=== PATIENT | male | born 1945 | race Caucasian/White ===

== ENCOUNTER 2019-08-19 17:02 | Inpatient (IN) | payer MEDICARE ==
[~2019-08-19] VITALS: Ht 180.3 cm; Wt 105.1 kg
--- NOTE | 2019-08-19 17:49 | RAD ---
EXAM: AP View of the chest DATE: 08/19/2019 5:22 PM INDICATION: Shortness of breath COMPARISON: No Prior FINDINGS: The heart is not enlarged. Mediastinal and hilar contours are normal. No focal parenchymal airspace opacity. No pleural effusion or pneumothorax. IMPRESSION: 1. No radiographic evidence for acute cardiopulmonary process. Electronically signed by: Donavon Teixeira MD (08/19/2019 5:46 PM) KIERRA
[2019-08-19 18:00] LABS: BASO % 0 % (0-3); EOS % 0 % (0-3); HEMATOCRIT 42.5 % (39.0-53.0); HEMOGLOBIN 14.1 g/dL (13.0-17.5); LYMPH # 0.8 x10^3/uL (1.0-4.8); LYMPH % 6 % (24-48); MEAN CORPUSCULAR HEMOGLOBIN 29 pg (25-35); MEAN CORPUSCULAR HGB CONC 33 g/dL (31-37); MEAN CORPUSCULAR VOLUME 88 fL (79-100); MONO % 7 % (0-9); NEUT # 11.1 x10^3uL (1.8-7.7); NEUT % 86 % (31-73); PLATELET COUNT 179 x10^3/uL (140-400); RED BLOOD COUNT 4.82 x10^6/uL (4.30-5.70); RED CELL DISTRIBUTION WIDTH 14.2 % (11.5-14.5); WHITE BLOOD COUNT 12.9 x10^3/uL (4.0-11.0)
[2019-08-19] MEDS ORDERED: IV NORMAL SALINE 1,000ML 1,000 ML IV ONE (18:00)
[2019-08-19 18:02] LABS: CALCIUM 8.6 mg/dL (8.5-10.1); CREATININE 2.2 mg/dL (0.7-1.3); GFR 29.7; POTASSIUM 3.9 mmol/L (3.5-5.1)
--- NOTE | 2019-08-19 18:04 | PHYS DOC ---
Past History Past Medical History: Diabetes, High Cholesterol, Hypertension Past Medical History Enlarged prostate Past Surgical History: Other Additional Past Surgical Histo: toe Alcohol Use: Occasionally General Adult EDM: Chief Complaint: SHORTNESS OF BREATH HPI: HPI: "..I feel like .. I got the flu.. the last three days..." Patient is a 73 year old male who presents with above hx and complaints of dyspnea, cough, sore throat, malaise, fever, myalgia, diarrhea, arthralgia, and chest discomfort x 3 days. Patient denies any travel or sick ill contacts. Patient denies any intake of bad food. Patient denies any history of immunosuppression. Patient does have a history of hypertension, diabetes, elevated lipids, DVTs,. The patient follows with Dr. Michel for care. Review of Systems: Review of Systems: Constitutional: Hx.of fever or chills Eyes: Denies change in visual acuity HENT: Complaints of sore throat Respiratory: Complaints cough and shortness of breath Cardiovascular: Complaints o f chest discomfort. GI: Complains of abdominal pain, nausea, , and diarrhea : Denies dysuria Musculoskeletal: Complains of generalized joint and muscle pain Integument: Denies rash Neurologic: Denies headache, focal weakness or sensory changes Endocrine: Denies polyuria or polydipsia Lymphatic: Denies swollen glands Psychiatric: Denies depression or anxiety Heart Score: HEART Score for Chest Pain: HEART Score for Chest Pain Response (Comments) Value History Slighlty/Non-Suspicious 0 ECG Nonspecific Repolarizatio 1 Age > 65 2 Risk Factors >3 Risk Factors or Hx CAD 2 Troponin >1-<3x Normal Limit 1 Total 6 Risk Factors: Risk Factors: DM, Current or recent (<one month) smoker, HTN, HLP, family history of CAD, obesity. Risk Scores: Score 0 - 3: 2.5% MACE over next 6 weeks - Discharge Home Score 4 - 6: 20.3% MACE over next 6 weeks - Admit for Clinical Observation Score 7 - 10: 72.7% MACE over next 6 weeks - Early Invasive Strategies Family History: Family History: Mother lived to 97 Father lived to 91 Current Medications: Current Meds: Current Medications Medications (Trade) Dose Ordered Sig/Rukhsana Start Time Stop Time Status Last Admin Dose Admin Sodium Chloride 1,000 ml @ 1,000 mls/hr 1X ONCE 08/19/19 18:00 08/19/19 18:59 08/19/19 17:35 1,000 MLS/HR Allergies: Allergies: Allergies Coded Allergies Type Severity Reaction Last Updated Verified Penicillins Allergy Unknown 08/19/19 Yes Physical Exam: PE: Constitutional: Mild distress, ill and appearance. [] HENT: Normocephalic, atraumatic, bilateral external ears normal, oropharynx moist, no oral exudates, nose normal. [] Eyes: PERRLA, EOMI, conjunctiva normal, no discharge. [] Neck: Normal range of motion, no tenderness, supple, no stridor. [] Cardiovascular: Tachycardia heart rate regular rhythm, no murmur [] Lungs & Thorax: Bilateral breath sounds equal apex with some scattered wheezes on auscultation [] Abdomen: Bowel sounds hyperactive l, soft, no tenderness, no masses, no pulsatile masses. [] Skin: Warm, dry, no erythema, no rash. [] Back: No tenderness, no CVA tenderness. [] Extremities: No tenderness, no cyanosis, no clubbing, ROM intact, no edema. [No obvious cording appreciated. Neurologic: Alert and oriented X 3, normal motor function, normal sensory function, no focal deficits noted. [] Psychologic: Affect anxious, judgement normal, mood normal. [] Current Patient Data: Labs: Laboratory Tests Test 08/19/19 17:30 White Blood Count 12.9 x10^3/uL (4.0-11.0) H Red Blood Count 4.82 x10^6/uL (4.30-5.70) Hemoglobin 14.1 g/dL (13.0-17.5) Hematocrit 42.5 % (39.0-53.0) Mean Corpuscular Volume 88 fL (79-100) Mean Corpuscular Hemoglobin 29 pg (25-35) Mean Corpuscular Hemoglobin Concent 33 g/dL (31-37) Red Cell Distribution Width 14.2 % (11.5-14.5) Platelet Count 179 x10^3/uL (140-400) Neutrophils (%) (Auto) 86 % (31-73) H Lymphocytes (%) (Auto) 6 % (24-48) L Monocytes (%) (Auto) 7 % (0-9) Eosinophils (%) (Auto) 0 % (0-3) Basophils (%) (Auto) 0 % (0-3) Neutrophils # (Auto) 11.1 x10^3uL (1.8-7.7) H Lymphocytes # (Auto) 0.8 x10^3/uL (1.0-4.8) L Monocytes # (Auto) 1.0 x10^3/uL (0.0-1.1) Eosinophils # (Auto) 0.0 x10^3/uL (0.0-0.7) Basophils # (Auto) 0.0 x10^3/uL (0.0-0.2) Sodium Level 132 mmol/L (136-145) L Potassium Level 3.9 mmol/L (3.5-5.1) Chloride Level 97 mmol/L (98-107) L Carbon Dioxide Level 22 mmol/L (21-32) Anion Gap 13 (6-14) Blood Urea Nitrogen 44 mg/dL (8-26) H Creatinine 2.2 mg/dL (0.7-1.3) H Estimated GFR (Cockcroft-Gault) 29.7 BUN/Creatinine Ratio 20 (6-20) Glucose Level 175 mg/dL (70-99) H Calcium Level 8.6 mg/dL (8.5-10.1) Total Bilirubin Pending Aspartate Amino Transferase (AST) Pending Alanine Aminotransferase (ALT) Pending Alkaline Phosphatase Pending Total Protein Pending Albumin Pending Albumin/Globulin Ratio Pending Vital Signs: Vital Signs Date Time Temp Pulse Resp B/P (MAP) Pulse Ox O2 Delivery O2 Flow Rate FiO2 08/19/19 17:02 99.0 119 24 115/65 (82) 95 Room Air EKG: EKG: My interpretation of EKG shows a sinus tachycardia 117 bpm. Does have occasional PACs. But no findings of acute STEMI with contralateral changes [] Radiology/Procedures: Radiology/Procedures: [][address] [address] IMAGING REPORT Signed PATIENT: AMEYA JACOBO ACCOUNT: [id number] : 1945 LOCATION: ER AGE: 73 SEX: M EXAM STATUS: PRE ER ORD. PHYSICIAN: ALECIA ESTRELLA DO REASON: SOB PROCEDURE: CHEST AP ONLY EXAM: AP View of the chest DATE: 08/19/2019 5:22 PM INDICATION: Shortness of breath COMPARISON: No Prior FINDINGS: The heart is not enlarged. Mediastinal and hilar contours are normal. No focal parenchymal airspace opacity. No pleural effusion or pneumothorax. IMPRESSION: 1. No radiographic evidence for acute cardiopulmonary process. Electronically signed by: Donavon Stearns MD (08/19/2019 5:46 PM) [facility] DICTATED AND SIGNED BY: DONAVON STEARNS MD DATE: 08/19/19 [id number] CC: ALECIA ESTRELLA DO; PCP,NO ~ Course & Med Decision Making: Course & Med Decision Making Pertinent Labs and Imaging studies reviewed. (See chart for details) Discussed presentation, testing and tx plan with Dr. Paz-Preethi, with consult to Cardiology. Impression: 1. Chest Pain- Elevated Trop.= 0.118 2. Nausea,Vomiting, Diarrhea 3.Hx.of Fever 4. Hx.of HTN 5. Dehydration Elev.Creat/BUN 2.2/44 6. DM - 175 7. [id number] 8. Dyspnea 9. Hx. of Elevated Lipids 10.Elevate D-dimer [] Dragon Disclaimer: Dragon Disclaimer: This electronic medical record was generated, in whole or in part, using a voice recognition dictation system. Departure Departure: Disposition: 01 HOME/RESIDENCE PRIOR TO ADM Condition: STABLE Referrals: PCP,NO (PCP) Dragon Disclaimer This chart was dictated in whole or in part using Voice Recognition software in a busy, high-work load, and often noisy Emergency Department environment. It may contain unintended and wholly unrecognized errors or omissions. Dragon Disclaimer This chart was dictated in whole or in part using Voice Recognition software in a busy, high-work load, and often noisy Emergency Department environment. It may contain unintended and wholly unrecognized errors or omissions. Dragon Disclaimer This chart was dictated in whole or in part using Voice Recognition software in a busy, high-work load, and often noisy Emergency Department environment. It may contain unintended and wholly unrecognized errors or omissions. JOSEPHINE RINALDI MD August 19, 2019 18:04
[2019-08-19 18:08] LABS: ALBUMIN 3.4 g/dL (3.4-5.0); ALBUMIN/GLOBULIN RATIO 0.8 (1.0-1.7); TOTAL BILIRUBIN 0.6 mg/dL (0.2-1.0); TOTAL PROTEIN 7.5 g/dL (6.4-8.2)
[2019-08-19] MEDS ORDERED: ASPIRIN 325 MG TABLET PO ONE (18:45)
[2019-08-19] MEDS ORDERED: ENOXAPARIN ** NOTE DOSE ** SYRINGE SQ ONE (18:45)
[2019-08-19 18:52] LABS: INFLUENZA A PATIENT NEGATIVE (NEGATIVE); INFLUENZA B PATIENT NEGATIVE (NEGATIVE)
[2019-08-19] MEDS ORDERED: IV RINGERS SOLUTION,LACTATED 1,000 ML IV SCH (19:00)
[2019-08-19] MEDS ORDERED: ACETAMINOPHEN 325 MG TABLET PO PRN (19:00)
[2019-08-19] MEDS ORDERED: ONDANSETRON PF 4 MG/2 ML VIAL. IVP PRN (19:00)
[2019-08-19] MEDS ORDERED: IPRATRPIUM/ALBUTEROL 0.5/2.5MG 3 ML NEBU. NEB SCH (20:00)
--- NOTE | 2019-08-19 20:50 | NUR ---
Admission Note: Pt transported via EMS from ED to ICU room 4, pt ambulated from cart to bed w/no assistance, VSS, no c/o pain, no c/o of n/v at this time, IV is saline locked at this time, pt oriented to room and call light, box lunch provided, admission documentation completed.
[2019-08-19 21:02] VITALS: BP 119/66
[2019-08-19] MEDS: ENOXAPARIN ** NOTE DOSE ** SYRINGE SQ SCH (21:20)
[2019-08-19] MEDS ORDERED: METF10007 PO (21:56)
[2019-08-19] MEDS ORDERED: BENA40TA3 PO (21:56)
[2019-08-19] MEDS ORDERED: ATOR10TA60 PO (21:56)
[2019-08-19] MEDS ORDERED: AMLO-186 PO (21:56)
[2019-08-19] MEDS ORDERED: FINA5TAB4 PO (21:56)
[2019-08-19 23:28] VITALS: BP 130/78
[2019-08-20 06:09] VITALS: BP 108/63
--- NOTE | 2019-08-20 06:16 | NUR ---
Shift Note: Pt is a/o x4, VS show slightly lower BP this am (108/63), Temp is 100.0 (99.9 on admission), pt continues to have loose stools and has requested Imodium (adv would nd to wait on stool sample to result, pt states "OK", pt has drank approximately 1500mls since admission (1 liter fluid given in ED), home medications entered but need reconciled, consult to alon called this am, pt unsure of all allergies and health history and requests staff to call his pcp (Dr. Michel at [phone]) when they open this am.
[2019-08-20 06:22] LABS: BASO % 0 % (0-3); EOS % 0 % (0-3); HEMATOCRIT 39.8 % (39.0-53.0); HEMOGLOBIN 13.5 g/dL (13.0-17.5); LYMPH # 0.8 x10^3/uL (1.0-4.8); LYMPH % 8 % (24-48); MEAN CORPUSCULAR HEMOGLOBIN 30 pg (25-35); MEAN CORPUSCULAR HGB CONC 34 g/dL (31-37); MEAN CORPUSCULAR VOLUME 88 fL (79-100); MONO # 0.9 x10^3/uL (0.0-1.1); MONO % 10 % (0-9); NEUT # 7.4 x10^3uL (1.8-7.7); NEUT % 81 % (31-73); PLATELET COUNT 160 x10^3/uL (140-400); WHITE BLOOD COUNT 9.1 x10^3/uL (4.0-11.0)
[2019-08-20 06:40] LABS: CALCIUM 8.2 mg/dL (8.5-10.1); CREATININE 1.9 mg/dL (0.7-1.3); GFR 35.1; POTASSIUM 3.6 mmol/L (3.5-5.1)
--- NOTE | 2019-08-20 08:09 | NUR ---
IP: Patient tests pending for COVID-19, requires contact and airborne precautions.
[2019-08-20] MEDS: ENOXAPARIN ** NOTE DOSE ** SYRINGE SQ SCH ×2 (09:00→20:56)
[2019-08-20] MEDS ORDERED: ASPIRIN 325 MG TABLET PO SCH (09:00)
[2019-08-20 10:57] VITALS: BP 123/72
--- NOTE | 2019-08-20 13:40 | PDOC2 ---
CARDIAC CONSULT DATE OF CONSULT Date Of Consult DATE: 08/20/19 TIME: 13:33 REASON FOR CONSULT Reason for Consult Shortness of breath, minimally elevated troponin REFERRING PHYSICIAN Referring Physician SOURCE Source: Chart review, Patient HPI History of Present Illness The patient is a 73-year-old male who was admitted yesterday from the emergency room with 3 days of increasing shortness of breath, cough, diarrhea and episodes of chest pain. Initial work-up included a chest x-ray that showed no acute changes. EKG by report shows a sinus tachycardia rate 110 with no acute ischemic changes. Initial creatinine was 2.2 but is now decreased to 1.9. Initial white count of 12.9. Initial troponin was minimally elevated 0.118 but the patient's d-dimer was significantly elevated at 4.76. The patient has been treated with fluids and pulmonary treatments and his creatinine has improved to 1.9. He is feeling better today. He denies any history of coronary disease or congestive heart failure. PAST MEDICAL HISTORY Cardiovascular: HTN, hyperipidemia, Other (DVT) Endocrine: Diabetes PAST SURGICAL HISTORY Past Surgical History: Other (Previous toe surgery) FAMILY HISTORY Family History: Hypertension SOCIAL HISTORY ALCOHOL: occassional CURRENT MEDICATIONS Current Medications Current Medications Sodium Chloride 1,000 ml @ 1,000 mls/hr 1X ONCE IV Last administered on 08/19/19at 17:35; Start 08/19/19 at 18:00; Stop 08/19/19 at 18:59; Status DC Aspirin (Becky Aspirin) 325 mg 1X ONCE PO Last administered on 08/19/19at 21:20; Start 08/19/19 at 18:45; Stop 08/19/19 at 18:49; Status DC Enoxaparin Sodium (Lovenox 100mg Syringe) 100 mg 1X ONCE SQ ; Start 08/19/19 at 18:45; Stop 08/19/19 at 18:49; Status DC Ondansetron HCl (Zofran) 4 mg PRN Q4HRS PRN IVP NAUSEA/VOMITING; Start 08/19/19 at 19:00; Stop 08/20/19 at 18:59 Acetaminophen (Tylenol) 650 mg PRN Q4HRS PRN PO FEVER > 100.3'F; Start 08/19/19 at 19:00; Stop 08/20/19 at 18:59 Albuterol/ Ipratropium (Duoneb) 3 ml RTQID NEB ; Start 08/19/19 at 20:00; Stop 08/19/19 at 19:54; Status DC Aspirin (Becky Aspirin) 81 mg DAILY PO ; Start 08/20/19 at 09:00 Enoxaparin Sodium (Lovenox 100mg Syringe) 100 mg BID SQ Last administered on 08/20/19at 09:00; Start 08/19/19 at 21:00 Lactated Ringer's 1,000 ml @ 200 mls/hr Q5H IV ; Start 08/19/19 at 19:00; Stop 08/19/19 at 22:25; Status DC Active Scripts Active Reported Atorvastatin Calcium 10 Mg Tablet 10 Mg PO DAILY PRN Metformin Hcl 1,000 Mg Tablet 1,000 Mg PO BIDACBL Finasteride 5 Mg Tablet 5 Mg PO DAILY Benazepril Hcl 40 Mg Tablet 40 Mg PO DAILY Amlodipine Besylate 5 Mg Tablet 5 Mg PO DAILY ALLERGIES Allergies: Coded Allergies: Penicillins (Verified Allergy, Unknown, 08/19/19) ROS General: YES: Fatigue Respiratory: YES: Shortness of breath Cardiovascular: yes: Chest Pain Gastrointestinal: YES: Diarrhea PHYSICAL EXAM Lungs: Other Heart: Other VITALS Vital Signs Vital Signs Date Time Temp Pulse Resp B/P (MAP) Pulse Ox O2 Delivery O2 Flow Rate FiO2 08/20/19 10:57 98.4 81 123/72 (89) 97 Room Air 08/20/19 06:09 9 LABS LABS Laboratory Tests Test 08/19/19 17:30 08/19/19 17:50 08/20/19 05:30 White Blood Count 12.9 x10^3/uL (4.0-11.0) 9.1 x10^3/uL (4.0-11.0) Red Blood Count 4.82 x10^6/uL (4.30-5.70) 4.50 x10^6/uL (4.30-5.70) Hemoglobin 14.1 g/dL (13.0-17.5) 13.5 g/dL (13.0-17.5) Hematocrit 42.5 % (39.0-53.0) 39.8 % (39.0-53.0) Mean Corpuscular Volume 88 fL (79-100) 88 fL (79-100) Mean Corpuscular Hemoglobin 29 pg (25-35) 30 pg (25-35) Mean Corpuscular Hemoglobin Concent 33 g/dL (31-37) 34 g/dL (31-37) Red Cell Distribution Width 14.2 % (11.5-14.5) 14.0 % (11.5-14.5) Platelet Count 179 x10^3/uL (140-400) 160 x10^3/uL (140-400) Neutrophils (%) (Auto) 86 % (31-73) 81 % (31-73) Lymphocytes (%) (Auto) 6 % (24-48) 8 % (24-48) Monocytes (%) (Auto) 7 % (0-9) 10 % (0-9) Eosinophils (%) (Auto) 0 % (0-3) 0 % (0-3) Basophils (%) (Auto) 0 % (0-3) 0 % (0-3) Neutrophils # (Auto) 11.1 x10^3uL (1.8-7.7) 7.4 x10^3uL (1.8-7.7) Lymphocytes # (Auto) 0.8 x10^3/uL (1.0-4.8) 0.8 x10^3/uL (1.0-4.8) Monocytes # (Auto) 1.0 x10^3/uL (0.0-1.1) 0.9 x10^3/uL (0.0-1.1) Eosinophils # (Auto) 0.0 x10^3/uL (0.0-0.7) 0.0 x10^3/uL (0.0-0.7) Basophils # (Auto) 0.0 x10^3/uL (0.0-0.2) 0.0 x10^3/uL (0.0-0.2) D-Dimer (Dana) 4.76 mg/L (0.00-0.50) Sodium Level 132 mmol/L (136-145) 133 mmol/L (136-145) Potassium Level 3.9 mmol/L (3.5-5.1) 3.6 mmol/L (3.5-5.1) Chloride Level 97 mmol/L (98-107) 99 mmol/L (98-107) Carbon Dioxide Level 22 mmol/L (21-32) 23 mmol/L (21-32) Anion Gap 13 (6-14) 11 (6-14) Blood Urea Nitrogen 44 mg/dL (8-26) 40 mg/dL (8-26) Creatinine 2.2 mg/dL (0.7-1.3) 1.9 mg/dL (0.7-1.3) Estimated GFR (Cockcroft-Gault) 29.7 35.1 BUN/Creatinine Ratio 20 (6-20) Glucose Level 175 mg/dL (70-99) 162 mg/dL (70-99) Lactic Acid Level 1.5 mmol/L (0.4-2.0) Calcium Level 8.6 mg/dL (8.5-10.1) 8.2 mg/dL (8.5-10.1) Total Bilirubin 0.6 mg/dL (0.2-1.0) Aspartate Amino Transf (AST/SGOT) 25 U/L (15-37) Alanine Aminotransferase (ALT/SGPT) 37 U/L (16-63) Alkaline Phosphatase 63 U/L (46-116) Troponin I Quantitative 0.118 ng/mL (0-0.055) Total Protein 7.5 g/dL (6.4-8.2) Albumin 3.4 g/dL (3.4-5.0) Albumin/Globulin Ratio 0.8 (1.0-1.7) Influenza Type A (Rapid) Negative (NEGATIVE) Influenza Type B (Rapid) Negative (NEGATIVE) Group A Streptococcus Rapid Negative (NEGATIVE) IMAGES IMAGES Chest x-ray shows no acute changes. EKG EKG Initial EKG showed a sinus tachycardia rate 110 with no acute ischemic changes. ASSESSMENT/PLAN Assessment/Plan 1. Dyspnea on exertion, shortness of breath, diarrhea and chest discomfort over 3 days. Patient's initial EKG showed no acute ischemic changes. Troponin is minimally elevated 0.118. However d-dimer significantly elevated at 4.76. Patient is being treated with Lovenox. Further work-up for possible PE is pending. From a cardiac viewpoint we will recheck an EKG and trend troponin. Depending on the results of the patient's work-up he will probably be a candidate for outpatient echo and possible stress testing. The patient has been tested for COVID with results pending. 2. Hypertension. Patient blood pressure is under reasonable control. We will continue present medications and monitor. 3. Hyperlipidemia. Will check lab. 4. Diabetes mellitus. As per the primary service. Thank you for allowing us to participate in the care of your patient. FABRICIO NÚÑEZ MD August 20, 2019 13:40
[2019-08-20 15:00] VITALS: BP 124/68
[2019-08-20] MEDS: IV NORMAL SALINE 1,000ML 1,000 ML IV SCH ×2 (17:00→23:40)
[2019-08-20] MEDS ORDERED: IV NORMAL SALINE 1,000ML 1,000 ML IV ONE (17:00)
--- NOTE | 2019-08-20 18:30 | HP ---
ADMIT DATE: 08/19/2019 HISTORY OF PRESENT ILLNESS: The patient is a 73-year-old male patient who came to the Emergency Room complaining of shortness of breath. He stated that they feel like "I got the flu" the last 3 days. When he presented to the Emergency Room he stated that he has dyspnea, cough, sore throat, malaise, fever, myalgia, diarrhea, arthralgia and chest discomfort that has been going on for 3 days. He denied any recent travel or sick ill contact. The patient denies any intake of bad food. Denies any history of immunosuppression and he was basically extensively investigated in the Emergency Room. His lab work showed that he has mild hyponatremia, sodium ____. His kidney function was elevated at 2.2 and his D-dimer was high at 4.76. He has had a chest x-ray, which showed that the heart is not enlarged. Mediastinal hilar contours are normal. No focal parenchymal airspace opacity. No pleural effusion and therefore, the patient was admitted with chest pain and elevated troponin. He has nausea, vomiting, diarrhea, history of fever, dehydration and elevated creatinine and BUN, his diabetes and elevated D-dimer. He was basically admitted for rehydration to do 2 more sets of cardiac enzyme and to consult the linesperson. PAST MEDICAL HISTORY: Significant for type 2 diabetes mellitus, hypertension and benign prostatic hypertrophy. PAST SURGICAL HISTORY: Significant for left elbow surgery with damage to all the 3 nerves. He underwent also a left second toe partial amputation. ALLERGIES: HE IS ALLERGIC TO PENICILLIN. MEDICATIONS: He is currently on atorvastatin 10 mg at bedtime, amlodipine 5 mg once a day, benazepril 40 mg once a day, metformin 1000 mg twice a day and finasteride 5 mg daily. FAMILY HISTORY: His father at the age of 91. Mother is still alive at age of 97 and she is fairly healthy. She continues to drive her car. SOCIAL HISTORY: He is , has 1 daughter. He smoked a long time ago. He drinks socially, does not use any drugs. 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 REVIEW OF SYSTEMS: The patient denies any blurring of vision, cataract, glaucoma or macular degeneration. Denied any earache, tinnitus or sensorineural deafness. Denied any nosebleeds, stuffy nose or postnasal drip. Denied any sore throat, sore tongue, toothache, hoarseness of voice. He at least denied to me he has any nausea or vomiting, although he stated that he has had nausea and vomiting as well as diarrhea. He denied any hematemesis, melena, hematochezia. Denied any dysuria, frequency or hematuria. Denied any chest pain, shortness of breath, orthopnea, paroxysmal nocturnal dyspnea. PHYSICAL EXAMINATION: GENERAL: On arrival to the Emergency Room, the patient looked well and was in no apparent respiratory distress. There was no pallor, jaundice, cyanosis or thyromegaly. No jugular venous distention. No limb edema. VITAL SIGNS: His heart rate was 119, blood pressure was 115/65, temperature was 99, respiratory rate 24 and oxygen saturation was 95%. HEAD, EYES, EARS, NOSE AND THROAT: Showed normocephalic, atraumatic. NECK: Supple. HEART: Showed normal first and second heart sounds. No gallop, rub or murmur. CHEST: Clear to auscultation. No crepitation or rhonchi. ABDOMEN: Distended, soft, nontender. NEUROLOGIC: He is awake, alert, responding appropriately. All cranial nerves intact. EXTREMITIES: He moves extremities without difficulty. LABORATORY WORK: Showed a white cell count of 12,900, hemoglobin 14, hematocrit 42, MCV 88 and platelet count 179,000 with normal manual differential. His D-dimer was 4.76. His chemistry showed a serum sodium of 132, potassium 3.9, chloride 97, bicarbonate 22, anion gap of 13, BUN 44, creatinine 2.2, estimated GFR was 97 mL per minute. His glucose was 175. Lactic acid was 1.5. Calcium was 8.6. Total bilirubin, AST, ALT, alkaline phosphatase were normal. His first troponin was 0.118. Total protein was 7.5, albumin was 3.4. His serum triglycerides were 106, cholesterol 132. His LDL was 71, VLDL was 21, HDL cholesterol was 40 and ratio was 3. His influenza A and B were negative and group A streptococcus rapid test was negative. PLAN: My plan is obviously to rehydrate the patient. I will hold all his medication for now. I did start him and give him a liter of normal saline and I will continue IV fluid at 150 mL per hour. We will repeat all his lab work tomorrow and I will continue meanwhile with Lovenox and tomorrow, we will do a CT angio of the chest, abdomen and pelvis and we will decide on further management accordingly. He apparently has his stool sent for culture and we have the COVID test that was sent also and C. diff completed was negative. JAMES HALE MD DR: BAUTISTA/sharon JOB#: [id number] / [id number]
--- NOTE | 2019-08-20 19:34 | PN ---
DATE: 08/20/2019 SUBJECTIVE: The patient is resting flat in bed, no apparent distress. He continued to complain of diarrhea more than anything else. In fact, he did not complain of any complaint that he described to the ER physician. PHYSICAL EXAMINATION: GENERAL: When I examined him this afternoon, he looked well and was clearly in no apparent respiratory distress. No pallor, jaundice, cyanosis or thyromegaly. No jugular venous distention. No limb edema. VITAL SIGNS: His heart rate was 81, blood pressure 123/72, temperature was 98.4, respiratory rate was 14 and oxygen saturation was 97% on room air. HEAD, EYES, EARS, NOSE AND THROAT: Showed normocephalic, atraumatic. NECK: Supple. HEART: Showed normal first and second heart sounds. No gallop, rub or murmur. CHEST: Clear to auscultation. No crepitation or rhonchi. ABDOMEN: Distended, soft, nontender. No guarding or rigidity. No organomegaly. All hernial orifice intact. Bowel sounds normal. NEUROLOGIC: He was awake, alert, responding appropriately. All cranial nerves intact. He moves extremities without difficulty. His intake and output were incompletely recorded. LABORATORY DATA: Her lab work this morning showed a white cell count of 9100, hemoglobin 13.5, hematocrit 39.8, MCV 88, and platelet count of 160,000 with a manual differential showed 81% polymorphs, 8% lymphocytes and 10% monocytes. His chemistry showed a serum sodium 133, potassium 3.6, chloride 99, bicarbonate 11, BUN of 40, creatinine 1.9, estimated GFR was 35 mL per minute, his glucose 162 and calcium was 8.2. ASSESSMENT: This is a 73-year-old male patient who came in with complaint of dyspnea, cough, sore throat, malaise, fever, myalgia, diarrhea, arthralgia and chest discomfort x 2. He has acute kidney injury. His creatinine on admission was 2.2, BUN of 44, improving to 40 and 1.9. Hyponatremia, slightly improved and has leukocytosis, that is also improving. He has multiple medical problems including diabetes, hypertension, hyperlipidemia and benign prostatic hypertrophy. PLAN: My plan is to hold all his medication. I gave him a liter of fluid and to continue at 150 mL normal saline. I will repeat all his lab work tomorrow and if his creatinine is normal we will arrange for him to have a CT angio of the chest as well as CT scan of the abdomen and pelvis. JAMES HALE MD DR: BAUTISTA/sharon JOB#: [id number] / [id number]
[2019-08-20 20:23] VITALS: BP 110/66
[2019-08-20 22:33] VITALS: BP 119/72
--- NOTE | 2019-08-20 23:10 | EKG ---
[address] [address] Test Date: 2019-08-19 Test Time: 17:19:39 Pat Name: AMEYA JACOBO Department: Room: [id number] Gender: M Regulatory Compliance Coordinator: : 1945 Requested By: ALECIA ESTRELLA Order Number: [id number] Reading MD: Luis Enrique Ro Measurements Intervals [place] Rate: 117 P: 4 WV: 152 QRS: 55 QRSD: 86 T: 24 QT: 294 QTc: 414 Interpretive Statements SINUS TACHYCARDIA ATRIAL PREMATURE COMPLEX(ES) Electronically Signed On 08-23-2019 7:46:42 CDT by Luis Enrique Ro
[2019-08-21] MEDS: IV NORMAL SALINE 1,000ML 1,000 ML IV SCH ×4 (01:59→12:55)
[2019-08-21 06:33] VITALS: BP 106/62
[2019-08-21 06:57] LABS: BASO % 1 % (0-3); EOS % 1 % (0-3); LYMPH # 0.9 x10^3/uL (1.0-4.8); LYMPH % 11 % (24-48); MEAN CORPUSCULAR HEMOGLOBIN 29 pg (25-35); MEAN CORPUSCULAR HGB CONC 34 g/dL (31-37); MEAN CORPUSCULAR VOLUME 88 fL (79-100); MONO % 12 % (0-9); NEUT % 75 % (31-73); PLATELET COUNT 158 x10^3/uL (140-400)
[2019-08-21 07:09] LABS: ALBUMIN 2.5 g/dL (3.4-5.0); ALBUMIN/GLOBULIN RATIO 0.7 (1.0-1.7); CALCIUM 7.8 mg/dL (8.5-10.1); CREATININE 1.6 mg/dL (0.7-1.3); GFR 42.8; POTASSIUM 3.5 mmol/L (3.5-5.1); TOTAL BILIRUBIN 0.4 mg/dL (0.2-1.0); TOTAL PROTEIN 5.9 g/dL (6.4-8.2)
--- NOTE | 2019-08-21 07:26 | NUR ---
Pt struggling with urge incontinence of bowel. He is wearing a brief to prevent soiling the bed and floor. He is frustrated with his condition and is hoping for answers today. Pt in good spirits but is tired from being up so often last night. Pt had 6 known trips to the toilet independently. No complaints of pain or cramping. No nausea or vomiting. Pt asked for a sandwich last night and finished 100%.
[2019-08-21] MEDS: ENOXAPARIN ** NOTE DOSE ** SYRINGE SQ SCH ×3 (08:25→21:00)
[2019-08-21] MEDS: ASPIRIN CHEWABLE 81 MG TABLET. PO SCH (10:39)
--- NOTE | 2019-08-21 11:00 | RAD ---
EXAM: Abdomen and pelvis CT without intravenous contrast. HISTORY: Diarrhea. Pain. TECHNIQUE: Computed tomographic images of the abdomen and pelvis were obtained without intravenous contrast. Multiplanar reformatting was performed. *One or more of the following individualized dose reduction techniques were utilized for this examination: 1. Automated exposure control. 2. Adjustment of the mA and/or kV according to patient size. 3. Use of iterative reconstruction technique. COMPARISON: None. FINDINGS: Evaluation of the lower thorax demonstrates right middle lobe, lingular and left greater than right lower lobe atelectasis or scarring. There is increased extrapleural fat, an incidental finding. There is no pleural effusion or pneumothorax. There is hepatic steatosis and mild hepatomegaly. No suspicious hepatic lesion is seen. The gallbladder is unremarkable. The pancreas, spleen, adrenal glands and stomach are unremarkable. There is no renal or ureteral stone or hydronephrosis. No solid or cystic renal lesion is seen on this noncontrast exam. There is deformation of the bladder base due to an enlarged prostate. There is no appendicitis. There is no bowel obstruction. There is segmental wall thickening involving the colon, primarily at the level of the cecum and ascending colon. There is slight pericolonic fatty stranding and there are prominent pericolonic lymph nodes in these distributions. There is a small amount of gas within the right ventral abdominal wall due to a medication injection site. There is a tiny fat-containing left inguinal hernia. There are degenerative changes throughout the spine and both hips. There is no suspicious osseous lesion. IMPRESSION: 1. Segmental wall thickening involving the colon with surrounding pericolonic stranding and prominent pericolonic lymph nodes, primarily in the cecal and ascending colon distributions. This can be seen with acute colitis of infectious or inflammatory etiologies. Correlate with symptomatology. 2. Hepatic steatosis. 3. Prostatomegaly. Electronically signed by: Samantha Atkins MD (08/21/2019 10:56 AM) [facility]
[2019-08-21 11:10] VITALS: BP 106/62
--- NOTE | 2019-08-21 11:35 | NUR ---
Patient irritable when first meeting with him and apologized. Said he is just frustrated that he doesn't know yet his COVID-19 test results. I advised him that I would let him know the results as soon I as received them. Patient refused lovenox shot this morning stating "I know what it's for and I'm not going to take it today." Explained to him that Dr. Paz wanted an abdominal pelvis CT w/o contrast done and he stated understanding. Results for COVID came back and told patient he was negative, and he stated he was so relieved. Patient very talkative and continues to want me to stay in room to talk with him. VSS, denies pain and SOA. Will continue to monitor.
[2019-08-21 12:56] VITALS: BP 127/69
[2019-08-21 15:22] VITALS: BP 119/62
--- NOTE | 2019-08-21 16:21 | EKG ---
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
--- NOTE | 2019-08-21 19:27 | PN ---
DATE: 08/21/2019 SUBJECTIVE: The patient is sitting at the edge of the bed, eating his lunch comfortably, in no apparent distress. He has one episode of diarrhea. No nausea, no vomiting, no abdominal pain. His COVID test was negative. Stool for C. diff toxins were negative. We did start him on IV fluid yesterday and his creatinine came down from 2.[address] scan of the abdomen and pelvis without contrast showed that he has segmental wall thickening involving the colon with surrounding pericolonic stranding and prominent pericolonic lymph nodes primarily in the cecal and ascending colon distribution. This can be of the acute colitis of infective inflammatory etiologies correlate with symptomatology, has hepatic steatosis and prostatomegaly. Given the new finding, we did start him on ciprofloxacin and Flagyl. I will continue with IV fluid and evaluate him tomorrow. If his creatinine clearance improves, we might do a CT angio to rule out any pulmonary embolism. Meanwhile, we will continue today with Lovenox. PHYSICAL EXAMINATION: GENERAL: When I examined him this afternoon, he looked well and was clearly in no apparent distress. No pallor, jaundice, cyanosis or thyromegaly. No jugular venous distention. No limb edema. VITAL SIGNS: Her heart rate was 86, blood pressure was 106/62, temperature was 98.8, respiratory rate was 18, and oxygen saturation was 100%. HEAD, EYES, EARS, NOSE AND THROAT: Showed normocephalic, atraumatic. NECK: Supple. HEART: Showed normal first and second heart sounds. No gallop, rub or murmur. CHEST: Clear to auscultation. No crepitation or rhonchi. ABDOMEN: Distended, soft, nontender. NEUROLOGIC: He was awake, alert, responding appropriately. All cranial nerves intact. He moves extremities without difficulty. He ambulates without assistance or assistive devices. His intake was 2200, no output was recorded. LABORATORY DATA: His lab work this morning showed a white cell count of 8000, hemoglobin 12, hematocrit 36, MCV 88 and platelet count of 158,000. Serum sodium was 135, potassium 3.5, chloride 103, bicarbonate 21, anion gap of 11, BUN 32, creatinine 1.6, estimated GFR was 42 mL per minute. His glucose 152, calcium was 7.8. Total bilirubin, AST, ALT, alkaline phosphatase were normal. Total protein was 5.9, albumin is 2.5. His troponin has risen slightly to 0.119 and the last one was 0.125. ASSESSMENT AND PLAN: 1. Recurrent bouts of diarrhea. However, the CT scan showing that he has acute colitis for which we started him on Cipro and Flagyl. 2. Dehydration and acute kidney injury, improving. His creatinine came down from 2.2-1.6. 3. The patient complained of dyspnea, cough and sore throat, malaise, fever, myalgia. His COVID test was negative. 4. His D-dimer was high and unfortunately, his creatinine continued to be elevated, if by tomorrow the creatinine is within normal range, we will arrange for him to have CT angio to rule out the possibility of pulmonary embolism. 5. The patient has multiple other medical problems including: A. Hypertension. B. Hyperlipidemia. C. Benign prostatic hypertrophy. JAMES HALE MD DR: BAUTISTA/sharon JOB#: [id number] / [id number]
[2019-08-21 19:28] VITALS: BP 134/70
[2019-08-21] MEDS: CIPROFLOXACIN 200MG PREMIX 100 ML IV SCH (21:00)
[2019-08-21] MEDS: LACTOBACILLUS RHAMNOSUS GG 1 CAPSULE. PO SCH (21:00)
--- NOTE | 2019-08-21 21:27 | NUR ---
Pt refused lovenox this evening. Nurse explained benefits of physician order of medications. Pt still refused. Will continue to monitor.
[2019-08-21 22:58] VITALS: BP 113/70
[2019-08-22] MEDS: IV NORMAL SALINE 1,000ML 1,000 ML IV SCH ×4 (01:30→20:43)
--- NOTE | 2019-08-22 04:47 | NUR ---
Pt has been up every 2-3 hours for liquid BMs. He has urge incontinence of bowel occasionally and is concerned with distance to the toilet. BSC offered which was declined. Pt expresses depression and frustration with his accidents which sometimes end up on the floor. Pt reassured of our desire to gladly help him as often as needed. He expresses eagerness to return home. Will continue to monitor.
[2019-08-22 07:00] VITALS: BP 113/70
[2019-08-22 07:00] LABS: CALCIUM 7.8 mg/dL (8.5-10.1); CREATININE 1.3 mg/dL (0.7-1.3); GFR 54.4; POTASSIUM 3.9 mmol/L (3.5-5.1)
[2019-08-22] MEDS: ASPIRIN CHEWABLE 81 MG TABLET. PO SCH (08:00)
[2019-08-22] MEDS: IOHEXOL 350 MG/ML 100 ML VIAL. IV ONE ×2 (08:15→08:47)
[2019-08-22] MEDS: ENOXAPARIN ** NOTE DOSE ** SYRINGE SQ SCH (09:00)
[2019-08-22] MEDS: LACTOBACILLUS RHAMNOSUS GG 1 CAPSULE. PO SCH (09:00)
[2019-08-22] MEDS: CIPROFLOXACIN 200MG PREMIX 100 ML IV SCH ×2 (09:00→20:44)
--- NOTE | 2019-08-22 09:51 | RAD ---
CT CHEST WO CONTRAST INDICATION: Cough, chest pain. COMPARISON STUDY: Radiograph 08/19/2019. TECHNIQUE: Unenhanced axial images were obtained through the lungs and upper abdomen. Coronal and sagittal multiplanar reconstructions were also obtained. PQRS compliance statement: One or more of the following individualized dose reduction techniques were utilized for this examination: 1. Automated exposure control 2. Adjustment of the mA and/or kV according to patient size 3. Use of iterative reconstruction technique FINDINGS: Lungs and Airways: No pulmonary mass or consolidation. Normal central airways. Pleura: The pleural spaces are normal. Heart and Mediastinum: The visualized thyroid gland is normal in size and attenuation. No axillary or supraclavicular lymphadenopathy. No mediastinal, hilar or retrocrural lymphadenopathy. Normal cardiac size. No pericardial effusion. Coronary artery atherosclerotic disease. The great vessels of the thorax are normal. Abdomen: Please see prior CT abdomen pelvis report for intra-abdominal findings. Bones and Soft Tissues: Degenerative changes of the spine. IMPRESSION: No pulmonary mass or consolidation. No thoracic lymphadenopathy. Electronically signed by: Remy Gillette MD (08/22/2019 9:48 AM) [id number]
[2019-08-22 11:00] VITALS: BP 151/85
--- NOTE | 2019-08-22 12:08 | RAD ---
EXAM: Pulmonary ventilation-perfusion scan. HISTORY: Cough. Congestion. Elevated d-dimer TECHNIQUE: Scintigraphic effusion images of the chest were obtained during the intravenous administration of 5.5 mCi technetium 99m MAA. Ventilation images were not obtained. COMPARISON: Chest CT obtained on the same date. FINDINGS: There is no perfusion defect to suggest pulmonary embolism. There is slight heterogeneous radiotracer activity throughout the lungs, a finding which can be seen with chronic obstructive artery disease. IMPRESSION: Negative for pulmonary embolism. Electronically signed by: Samantha Atkins MD (08/22/2019 12:05 PM) [facility]
--- NOTE | 2019-08-22 12:29 | RAD ---
EXAM: Chest, 2 views HISTORY: Elevated d-dimer. Shortness of air. COMPARISON: CT dated 08/22/2019. FINDINGS: 2 views of the chest are obtained. There is no infiltrate, pleural effusion or pneumothorax. There is suspected basilar atelectasis. The heart is normal in size. IMPRESSION: Suspected bilateral basilar atelectasis. Electronically signed by: Samantha Atkins MD (08/22/2019 12:26 PM) [facility]
--- NOTE | 2019-08-22 14:06 | PN ---
DATE: 08/22/2019 SUBJECTIVE: The patient is sitting on the edge of the bed comfortably in no apparent distress. He continued to have diarrhea. However, so far, his V/Q scan showed that there is no perfusion defect to suggest pulmonary embolism. There is slight heterogenous radiotracer activity throughout the lung finding, which can be seen with chronic obstructive pulmonary disease. PHYSICAL EXAMINATION: GENERAL: When I examined him this afternoon, he looked well and was clearly in no apparent distress. No pallor, jaundice, cyanosis or thyromegaly. No jugular venous distention. No limb edema. VITAL SIGNS: His heart rate was 76, blood pressure was 151/85, temperature was 98.5, respiratory rate was 18 and oxygen saturation was 97%. HEAD, EYES, EARS, NOSE AND THROAT: Normocephalic, atraumatic. NECK: Supple. HEART: Showed normal first and second heart sounds. No gallop, rub or murmur. CHEST: Clear to auscultation. No crepitation or rhonchi. ABDOMEN: Distended, soft, nontender. No guarding or rigidity. No organomegaly. All hernial orifice intact. Bowel sounds normal. NEUROLOGIC: He is awake, alert, responding appropriately. All cranial nerves are intact. He moves extremities without difficulty. His intake over the last 24 hours was 2316, output was recorded. LABORATORY DATA: Showed a white cell count of 8000, hemoglobin 12, hematocrit 36, MCV 88 and platelet count of 158,000. His chemistry this morning showed a serum sodium 136, potassium 3.9, chloride 104, bicarbonate 25, anion gap of 7, BUN 23, creatinine was 1.3, estimated GFR was 54 and glucose was 130, calcium was 7.8. ASSESSMENT: 1. Recurrent bouts of diarrhea. However, CT scan showed that he has acute colitis for which we started him on Cipro and Flagyl. 2. Dehydration and acute kidney injury, improving. His creatinine is down to 1.3. The patient did complain of dyspnea, cough, sore throat, malaise, and fever. COVID test was negative. His D-dimer was high and unfortunately his creatinine clearance was elevated and today his creatinine was within acceptable range at 1.3; however, transpired that he is allergic to IODINE and therefore we did a V/Q scan, which was negative for DVT. The patient has multiple other medical problems including: A. Hypertension. B. Hyperlipidemia. C. Benign prostatic hypertrophy. PLAN: My plan is to continue with IV antibiotic today. I will discontinue his Lovenox and discharge him home tomorrow. DICTATION ENDS HERE JAMES HALE MD DR: BAUTISTA/sharon JOB#: [id number] / [id number]
[2019-08-22 15:00] VITALS: BP 133/87
[2019-08-22 19:48] VITALS: BP 144/74
[2019-08-22 23:24] VITALS: BP 126/67
[2019-08-23] MEDS: IV NORMAL SALINE 1,000ML 1,000 ML IV SCH (05:41)
[2019-08-23 06:29] VITALS: BP 110/66
--- NOTE | 2019-08-23 08:05 | PDOC ---
CARDIO Progress Notes Date & Time Date of Service DATE: 08/23/19 TIME: 07:59 Time of Evaluation 07:59 Subjective Notes No chest pain, palpitations, dizziness, or SOA. Does have some mild diarrhea. Vitals Vitals Vital Signs Date Time Temp Pulse Resp B/P (MAP) Pulse Ox O2 Delivery O2 Flow Rate FiO2 08/23/19 06:29 97.5 76 18 110/66 (81) 95 Room Air Weight Weight [ ] Input and Output I.O. Intake and Output 08/23/19 07:00 Intake Total 3200 ml Balance 3200 ml Intake Oral 900 ml IV Total 2300 ml # Voids 2 # Bowel Movements 2 Laboratory Labs Laboratory Tests Test 08/22/19 06:15 Sodium Level 136 mmol/L (136-145) Potassium Level 3.9 mmol/L (3.5-5.1) Chloride Level 104 mmol/L (98-107) Carbon Dioxide Level 25 mmol/L (21-32) Anion Gap 7 (6-14) Blood Urea Nitrogen 23 mg/dL (8-26) Creatinine 1.3 mg/dL (0.7-1.3) Estimated GFR (Cockcroft-Gault) 54.4 Glucose Level 130 mg/dL (70-99) Calcium Level 7.8 mg/dL (8.5-10.1) Microbiology Micro Microbiology 08/19/19 Stool Culture - Final, Resulted 08/19/19 Stool Culture Result 1 (CLARI) - Final, Resulted 08/19/19 Campylobacter Antigen Assay - Preliminary, Resulted 08/19/19 Campylobactor Result 1 - Preliminary, Resulted 08/19/19 Shiga Toxin Test - Final, Resulted 08/19/19 Nose/Throat Culture - Final, Complete 08/19/19 Throat Culture - Final, Complete 08/19/19 Blood Culture - Preliminary, Resulted NO GROWTH AFTER 3 DAYS... Physical Exams HEENT: Neck Supple W Full Motion Chest: Symmetric Lungs: Clear to Auscultation Heart: RRR Abdomen: Soft N/T Extremities: No Edema Neurology: alert, oriented, follow commands Assessment Assessment 1. Diarrhea, colitis 2. Chest pain, atypical. 3. Mild troponin elevation; highest 0.125 in the setting of DAVID and colitis. EKG without significant acute changes. 4. Hypertension; controlled 5. Hyperlipidemia; lipids on goal 6. Diabetes, II 7. DAVID 8. Elevated d-dimer; VQ without evidence of PE Recommendations ASA therapy Outpatient echo arranged Follow up in our office with Dr. Angela as arranged Consider outpatient ischemic evaluation based upon risk factors Supportive care. TOMY DOMINGUEZ APRN August 23, 2019 08:05
[2019-08-23] MEDS: ASPIRIN CHEWABLE 81 MG TABLET. PO SCH (08:14)
[2019-08-23] MEDS: LACTOBACILLUS RHAMNOSUS GG 1 CAPSULE. PO SCH (08:14)
[2019-08-23] MEDS: CIPROFLOXACIN 200MG PREMIX 100 ML IV SCH (08:43)
[2019-08-23 10:36] VITALS: BP 139/81
--- NOTE | 2019-08-23 10:53 | NUR ---
NURSING NOTE DISCHARGE PT DISCHARGED HOME VIA WHEELCHAIR ACCOMPANIED BY SELF, GETTING PICKED UP BY . PT GIVEN WRITTEN AND VERBAL DISCHARGE INSTRUCTIONS. PT EDUCATED ABOUT IMPORTANCE OF FOLLOW UP WITH CARDIOLOGY, PT GIVEN FOLLOW UP INFORMATION AND CONTACT INFORMATION. PT ENCOURAGED TO FOLLOW UP WITH PCP IN 7-10 DAYS OR SOONER IF NEEDED. PT GIVEN TEACHINGS ABOUT COLITIS. PT GIVEN HAND SCRIPTS FOR ANTIBIOTICS. NO COMPLICATIONS. MICHELLE LEWIS.
--- NOTE | 2019-08-23 13:59 | DS ---
DATE OF DISCHARGE: 08/23/2019 HOSPITAL COURSE: The patient is a 73-year-old male patient who was admitted actually with recurrent bouts of diarrhea with incidental finding of elevated troponin. The patient has no chest pain, no shortness of breath. He also had acute dehydration and acute kidney injury. In fact, his creatinine on arrival was 2.2. He has also leukocytosis. We did start him on aggressive IV fluid replacement and we did a CT scan of the abdomen and pelvis without contrast, which basically showed that the segmental wall thickening involving the colon with surrounding pericolonic stranding and prominent pericolonic lymph nodes primarily in the cecal and ascending colon distribution. This can be seen with acute colitis of infectious inflammatory etiologies. He has also hepatic steatosis and prostatomegaly. The patient was seen in consultation by the state comptroller and the plan is for him to have an outpatient echocardiogram and to be followed with the Cardiology office. His kidney function has steadily improved such that his creatinine was down from 2.2 to 1.3 and a decision was made to discharge him home to continue with oral Cipro and metronidazole. He was warned not to drink any alcohol while he is on metronidazole and Flagyl. PHYSICAL EXAMINATION: GENERAL: When I saw him on the day of discharge, he looked well and was clearly in no apparent respiratory distress. No pallor, jaundice, cyanosis or thyromegaly. No jugular venous distention. No limb edema. VITAL SIGNS: His heart rate was 75, blood pressure was 139/81, temperature was 97.1, respiratory rate was 18 and oxygen saturation was 99%. HEAD, EYES, EARS, NOSE AND THROAT: Showed normocephalic, atraumatic. NECK: Supple. HEART: Showed normal first and second heart sounds. No gallop or murmur. CHEST: Clear to auscultation. No crepitation or rhonchi. ABDOMEN: Distended, soft, nontender. NEUROLOGIC: He was awake, alert, responding appropriately. All cranial nerves intact. EXTREMITIES: He moves extremities without difficulty. He ambulates without assistance or assistive devices. LABORATORY DATA: His lab work on the day of discharge showed a white cell count of 8000, hemoglobin 12, hematocrit 36, MCV 88 and platelet count of 158,000. His chemistry showed a serum sodium 136, potassium 3.9, chloride 104, bicarbonate 25, anion gap of 7, BUN 23, creatinine 1.3, estimated GFR was 54 mL per minute. His glucose 130, calcium was 7.8. Total bilirubin, AST, ALT, alkaline phosphatase were normal. Total protein was 5.9, albumin 2.5. His troponin peaked up to 0.125. Stool for C. diff toxins were negative. His influenza A, B and group A streptococcus as well as COVID-19 for PCR were all negative. DISCHARGE MEDICATIONS: He was discharged to continue on amlodipine besylate 5 mg once a day, atorvastatin 10 mg at bedtime, benazepril 40 mg once a day, finasteride 5 mg at bedtime and metformin 1000 mg twice a day. He was also discharged on Cipro 500 mg twice a day and Flagyl 250 mg 3 times a day both for 1 week. FINAL DISCHARGE DIAGNOSES: 1. Recurrent bouts of diarrhea, however, CT scan showed he has acute colitis, for which we will start him on Cipro and Flagyl. 2. Dehydration and acute kidney injury, improving. His creatinine is down to 1.3. 3. The patient did complain of dyspnea, cough, sore throat, malaise and fever. COVID test was negative. His D-dimer was high and unfortunately, his creatinine clearance was elevated; however, it turned out that he is allergic to IODINE and therefore, we did a V/Q scan, which was negative for DVT. 4. The patient has multiple other medical problems including hypertension, hyperlipidemia, benign prostatic hypertrophy. The patient was seen by the Cardiology team and apparently the plan is for him to have an outpatient echo that has already been arranged. He will be followed by Dr. Angela's office as an outpatient and perhaps to consider also outpatient ischemic workup. JAMES HALE MD DR: BAUTISTA/sharon JOB#: [id number] / [id number]
[2019-08-23] MEDS ORDERED: metroNIDAZOLE 500 MG TABLET PO SCH (14:00)
[2019-08-23] MEDS ORDERED: CIPROFLOXACIN HCL 250 MG TABLET PO SCH (21:00)
--- NOTE | 2019-08-26 10:26 | NUR ---
IP: attempt to call patient to report stool culture results, no answer left call back number.
--- NOTE | 2019-08-26 11:42 | NUR ---
IP: return call from patient, discussed stool culture results. Will send report to PCP Ronnell Michel.
== END 2019-08-23 10:56 | disposition home or self-care (01) | DRG 871 ==
LOC: ER 17:02 → ICU 18:45 → 1 SOUTH 08-22 06:35
PROVIDERS: ADMIT Internal Medicine; ATTEND Internal Medicine
DX: A41.9 Sepsis, unspecified organism (principal); N17.1 Acute kidney failure with acute cortical necrosis; E87.1 Hypo-osmolality and hyponatremia; N17.9 Acute kidney failure, unspecified; K52.9 Noninfective gastroenteritis and colitis, unspecified; E11.9 Type 2 diabetes mellitus without complications; E78.00 Pure hypercholesterolemia, unspecified; E78.5 Hyperlipidemia, unspecified; E86.0 Dehydration; Z20.828 Contact with and (suspected) exposure to other viral communicable diseases; I10 Essential (primary) hypertension; N40.0 Benign prostatic hyperplasia without lower urinary tract symptoms; Z82.49 Family history of ischemic heart disease and other diseases of the circulatory system; Z87.891 Personal history of nicotine dependence; Z91.041 Radiographic dye allergy status; Z88.0 Allergy status to penicillin
CPT/HCPCS: 36415; 71045; 71046; 71250; 74176; 78580; 80048; 80053; 80061; 83605; 84484; 85025; 85379; 87040; 87045; 87070; 87493; 87635; 87804; 87880; 93005; 96374; 99285; A9540; J0744; J1650; J3490; Q9967; J7030